=== PATIENT | female | born 1970 | race Caucasian/White ===

== ENCOUNTER → 2021-01-22 | Outpatient (CLI) | payer BC ==
[~2021-01-22] MED LIST: ALBUTEROL SULFATE INH; AMLODIPINE BESY10 MG PO; BRINTELLIX20 MG PO; HYDROCHLOROTHIA25 MG PO; LABETALOL HCL200 MG PO; LEVOTHYROXINE100 MCG PO; LOSARTAN POTASS50 MG PO; METFORMIN HCL500 MG PO; PEPCID40 MG PO; POTASSIUM CITR10 ME1 PO; PRAVASTATIN SOD40 MG PO; SINGULAIR10 MG PO; VITAMIN D PO; VORT20TA PO
[2021-01-22 08:58] LABS: RED BLOOD COUNT 4.76 M/UL (4.00-5.10); WHITE BLOOD COUNT 6.6 K/UL (4.5-11.0)
[2021-01-22 09:16] LABS: BUN/CREATININE RATIO 36 (0-10)
== END ==
LOC: OPSV2 08:00
PROVIDERS: Obstetrics & Gynecology
DX: Z01.812 Encounter for preprocedural laboratory examination (principal); N93.9 Abnormal uterine and vaginal bleeding, unspecified
CPT/HCPCS: 80053; 81001; 85025

== ENCOUNTER → 2021-01-28 | Day surgery (SDC) | payer BC ==
[~2021-01-28] MED LIST changes: +DULCOLAX STOOL100 MG PO; +IBUPROFEN800 MG PO; +PERCOCET 5/325 T1 EA PO
== END | disposition home or self-care (01) ==
LOC: OR 07:30
DX: N84.0 Polyp of corpus uteri (principal); E78.5 Hyperlipidemia, unspecified; I10 Essential (primary) hypertension; E03.9 Hypothyroidism, unspecified; F43.23 Adjustment disorder with mixed anxiety and depressed mood; K21.9 Gastro-esophageal reflux disease without esophagitis; G47.33 Obstructive sleep apnea (adult) (pediatric); E66.01 Morbid (severe) obesity due to excess calories; R73.03 Prediabetes; Z68.41 Body mass index [BMI] 40.0-44.9, adult; Z99.89 Dependence on other enabling machines and devices; Z88.2 Allergy status to sulfonamides; Z79.84 Long term (current) use of oral hypoglycemic drugs; Z79.899 Other long term (current) drug therapy
CPT/HCPCS: 71045; 84703; 93005; J0690; J1100; J1885; J2001; J2250; J2405; J2704; J3010; J7120

== ENCOUNTER → 2021-08-04 | Outpatient (CLI) | payer BC | LOC: KOH-I 16:03 | DX: M79.672 Pain in left foot (principal); M79.671 Pain in right foot | CPT/HCPCS: 73630 ==

== ENCOUNTER → 2021-08-23 | Outpatient (CLI) | payer BC | LOC: ECHO 09:00 | DX: R01.1 Cardiac murmur, unspecified (principal); I08.1 Rheumatic disorders of both mitral and tricuspid valves | CPT/HCPCS: ECHO; 93306 ==